=== PATIENT | female | born 1990 | race Caucasian/White ===

== ENCOUNTER 2017-01-25 13:58 | Emergency (ER) | payer OTHER ==
[~2017-01-25] VITALS: Ht 154.9 cm; Wt 80.3 kg
[2017-01-25 14:16] VITALS: BP 115/67
--- NOTE | 2017-01-25 15:09 | PHYS DOC ---
Past Medical History Past Medical History: Other Additional Past Medical Histor: Ear infection Past Surgical History: Tonsillectomy Alcohol Use: None Drug Use: None Adult General Chief Complaint Chief Complaint: EARACHE/EAR PAIN [facility] HPI Patient is a 26 year old female presents to the emergency department stating that she has been treated for an ear infection approximately 01/22 and was placed on amoxicillin. She states that now she has cough and congestion. She is here with her daughter who has the same symptoms. She denies taking anything jsxn-yaq-[id number] to help. Patient also states that she wants her right ankle evaluated and she twisted the ankle trying to get the children downstairs during the toenail watch few days ago Review of Systems Review of Systems Constitutional: Denies fever or chills [] Eyes: Denies change in visual acuity, redness, or eye pain [] HENT: nasal congestion denies sore throat [] Respiratory: cough denies shortness of breath [] Cardiovascular: No additional information not addressed in HPI [] GI: Denies abdominal pain, nausea, vomiting, bloody stools or diarrhea [] : Denies dysuria or hematuria [] Musculoskeletal: Denies back pain or joint pain [] Integument: Denies rash or skin lesions [] Neurologic: Denies headache, focal weakness or sensory changes [] Endocrine: Denies polyuria or polydipsia [] Allergies Allergies Allergies Coded Allergies Type Severity Reaction Last Updated Verified azithromycin Allergy Intermediate 01/25/17 Yes Physical Exam Physical Exam Constitutional: Well developed, well nourished, no acute distress, non-toxic appearance. [] HENT: Normocephalic, atraumatic, bilateral external ears normal, oropharynx moist, no oral exudates, nose normal. Bilateral tympanic membranes appear to be normal. Throat slightly red with postnasal drip. No exudate noted.Eyes: PERRLA, EOMI, conjunctiva normal, no discharge. [] Neck: Normal range of motion, no tenderness, supple, no stridor. [] Cardiovascular:Heart rate regular rhythm, no murmur [] Lungs & Thorax: Bilateral breath sounds clear to auscultation [] Skin: Warm, dry, no erythema, no rash. [] Extremities: No tenderness, no cyanosis, no clubbing, ROM intact, no edema. [] Neurologic: Alert and oriented X 3, normal motor function, normal sensory function, no focal deficits noted. [] Psychologic: Affect normal, judgement normal, mood normal. [] Current Patient Data Vital Signs Vital Signs Date Time Temp Pulse Resp B/P (MAP) Pulse Ox O2 Delivery O2 Flow Rate FiO2 01/25/17 14:16 99.0 100 20 95 Room Air 99.0 EKG EKG [] Radiology/Procedures Radiology/Procedures [][facility] [address] [place] [address] IMAGING REPORT Signed PATIENT: JUDITH WHITE ACCOUNT: [id number] : 1990 LOCATION: ER AGE: 26 SEX: F EXAM STATUS: REG ER ORD. PHYSICIAN: KATIE NAVARRETE APRN REASON: twisted ankle pain to the lateral side PROCEDURE: ANKLE RIGHT 3V Indication: Twisting injury 2 days ago with pain. Technique: 3 views of the right ankle are submitted for review. No comparison is available. Findings: There is no fracture or dislocation. There is soft tissue swelling laterally. Impression: Negative for fracture. DICTATED and SIGNED BY: SALOMÓN ENGLAND MD DATE: 01/25/17 1528 CC: CHASE LOPEZ DO; KATIE NAVARRETE APRN; NON,STAFF ~ Course & Med Decision Making Course & Med Decision Making Pertinent Labs and Imaging studies reviewed. (See chart for details) Recommended the patient to use Sudafed and Mucinex DM [id number]. Patient states that she gets these symptoms every month and she has tried this combination last month and it did not work. Patient was recommended over-the- counter medications. Recommended that she continue using amoxicillin. X-rays were negative for any bony abnormalities. Patient will be placed in an Bala wrap with an Air-Stirrup splint with recommendations to follow-up with orthopedic in the next 7-10 days. Recommendations to wear the splint for the next 7-10 days and the Bala wrap for the next 5-7 days. Ice packs on 20 minutes off 20 minutes several times a day elevation as much as possible. Patient will be discharged home in stable condition with signs and symptoms to return back to emergency department. All questions and concerns been answered at patient's bedside. [] Dragon Disclaimer Dragon Disclaimer This electronic medical record was generated, in whole or in part, using a voice recognition dictation system. Departure Departure Impression: Primary Impression: Upper respiratory infection Additional Impression: Right ankle sprain Disposition: 01 HOME, SELF-CARE Condition: STABLE Referrals: CHASE LOPEZ DO (PCP) TOPHER BACH MD Patient Instructions: Ankle Sprain, [id number], Upper Respiratory Infection, Adult, Dozf-[id number] Additional Instructions: Activity as tolerated. Wear the Bala wrap for the next 5-7 days in the Air-Stirrup splint for the next 7 -10 days. Ice packs on 20 minutes off 20 minutes several times a day. Ibuprofen for pain and discomfort. You may use Benadryl isya-odn-xehhxeo to help with sinus congestion. He may use hhlc-aiq-swkronj cough medication as well. Continue with the antibiotics were prescribed, amoxicillin. Follow-up to primary care physician in the next 7-10 days. Return back to emergency department sign symptoms of become worse. If he continued to have ankle pain and discomfort follow-up with orthopedic. Problem Qualifiers Primary Impression: Upper respiratory infection URI type: unspecified URI Qualified Codes: J06.9 - Acute upper respiratory infection, unspecified Additional Impression: Right ankle sprain Encounter type: initial encounter Involved ligament of ankle: unspecified ligament Qualified Codes: S93.401A - Sprain of unspecified ligament of right ankle, initial encounter KATIE NAVARRETE APRN Jan 25, 2017 15:09
--- NOTE | 2017-01-25 15:32 | RAD ---
Indication: Twisting injury 2 days ago with pain. Technique: 3 views of the right ankle are submitted for review. No comparison is available. Findings: There is no fracture or dislocation. There is soft tissue swelling laterally. Impression: Negative for fracture.
== END 2017-01-25 16:07 | disposition home or self-care (01) ==
LOC: ER 13:58
DX: S93.401A Sprain of unspecified ligament of right ankle, initial encounter (principal); J06.9 Acute upper respiratory infection, unspecified; Z90.89 Acquired absence of other organs; Z88.1 Allergy status to other antibiotic agents; X50.9XXA Other and unspecified overexertion or strenuous movements or postures, initial encounter; Y93.89 Activity, other specified; Y99.8 Other external cause status; Y92.89 Other specified places as the place of occurrence of the external cause
CPT/HCPCS: 73610; 99284

== ENCOUNTER → 2017-10-28 | Day surgery (SDC) | payer OTHER ==
[~2017-10-28] MED LIST: LIDOCAINE 2% PF Vial for OR 5 ML VIAL.; PROPOFOL 20 ML IV
[2017-10-28] MEDS: IV RINGERS,LACTATED 1000ML 1,000 ML IV (13:49)
[2017-10-28 15:20] LABS: NEG OBC UR NEG; POS OBC UR POS; U PREG PATIENT NEGATIVE (NEG)
== END | disposition home or self-care (01) ==
LOC: SURG 13:04
DX: K29.50 Unspecified chronic gastritis without bleeding (principal); K21.9 Gastro-esophageal reflux disease without esophagitis; Z88.1 Allergy status to other antibiotic agents; K58.9 Irritable bowel syndrome, unspecified; F41.9 Anxiety disorder, unspecified; F32.9 Major depressive disorder, single episode, unspecified; J45.909 Unspecified asthma, uncomplicated; Z83.3 Family history of diabetes mellitus; Z82.49 Family history of ischemic heart disease and other diseases of the circulatory system; Z82.3 Family history of stroke; Z72.89 Other problems related to lifestyle; Z79.899 Other long term (current) drug therapy; Z98.890 Other specified postprocedural states; Z86.718 Personal history of other venous thrombosis and embolism; E66.9 Obesity, unspecified
CPT/HCPCS: 43235; 81025; J2001; J2704

== ENCOUNTER → 2018-11-08 | Outpatient (CLI) | payer MEDICAID ==
[2017-10-28 14:52] VITALS: BP 96/61
[~2018-11-08] MED LIST changes: +ASCO500C PO; +CHOL10003 PO; -LIDOCAINE 2% PF Vial for OR 5 ML VIAL.; +PROGESTERONE TROCHE; -PROPOFOL 20 ML IV
--- NOTE | 2018-11-08 14:12 | KCIC ---
MRI Cervical Spine Without Contrast History: Bilateral upper extremity pain and numbness, cervical radiculopathy Technique: Multiplanar, multi sequential noncontrast MR imaging was performed of the cervical spine. Comparison: None Findings: There is mild motion. Cervical cord caliber is within normal limits without focal signal abnormality. Cervical vertebral body stature and AP alignment are maintained. There is straightening of the cervical spine. Intervertebral disc spaces are overall maintained, mild disc desiccation greatest at C5-6. There is no significant marrow edema. C2-C3: Neural foramina and spinal canal are adequate. C3-C4: Spinal canal and neural foramina are adequate. C4-C5: Spinal canal and neural foramina are adequate. C5-C6: There is negligible posterior bulge. Neural foramina and spinal canal are adequate. C6-C7: Neural foramina and spinal canal are adequate. There is negligible posterior bulge. C7-T1: Spinal canal and neural foramina are adequate. Impression: 1. There is no significant cervical spinal stenosis or neural foramina compromise. There are negligible posterior bulges at C5-6 and C6-7. Electronically signed by: Darrin Sanchez MD (11/08/2018 2:10 PM) [facility]
== END | disposition home or self-care (01) ==
LOC: KCIC MRI 12:52
PROVIDERS: ATTEND Orthopaedic Surgery
DX: M50.122 Cervical disc disorder at C5-C6 level with radiculopathy (principal)
CPT/HCPCS: 72141

== ENCOUNTER → 2018-11-17 | Day surgery (SDC) | payer MEDICAID ==
[~2018-11-17] MED LIST changes: +CETI10TA16 PO; +ERYT250T14 PO; +ESOM40CA PO; +IV RINGERS,LACTATED 1000ML 1,000 ML IV SCH; +LIDOCAINE 2% PF 5 ML VIAL. ONE; +MONT10TA49 PO; +PROPOFOL 40 ML IV ONE
[2018-11-17 14:12] VITALS: BP 106/57
--- NOTE | 2018-11-18 14:07 | PATHOLOGY ---
[facility] Accession Number: [id number] . 01 Material submitted: . PART A: ileum - TERMINAL ILEUM BIOPSY PART B: colon - RANDOM COLON BIOPSY . 01 Clinical history: . Right and left abdominal pain . 02 Diagnosis: A. Small intestine mucosa, terminal ileum biopsies: - No significant pathologic abnormalities. . B. Colonic mucosa, random colon biopsies: - No significant pathologic abnormalities. LB/11/18/2018 . 02 Comment: Sections of the terminal ileum biopsy reveal multiple segments of small intestine mucosa with focally hyperplastic mucosal associated lymphoid tissue (Peyer's patch). Where best oriented, the mucosal villi show no sprue-like changes or significant inflammatory changes. . Sections of the random colon biopsy reveal multiple segments of colonic mucosa containing multiple scattered mucosal associated lymphoid aggregates. There is no evidence of a chronic destructive colitis, lymphocytic colitis, or collagenous colitis. (JPM/db; 11/18/2018) . 02 Electronically signed: . Javy Resendez MD, Pathologist NPI- [id number] . 01 Gross description: . A. Received in formalin labeled "Tarik Singletary, terminal ileum BX," are 4 segments of to soft tissue measuring 1.4 x 0.9 x 0.2 cm in aggregate dimensions and ranging from 0.4 to 0.5 cm in maximum dimension. The specimen is submitted entirely in cassette A1. . B. Received in formalin labeled "Tarik Singletary, random colon BX," are 8 segments of to soft tissue measuring 2.0 x 1.6 x 0.3 cm in aggregate dimensions and ranging from 0.4 to 0.6 cm in maximum dimension. The specimen is submitted entirely in cassette B1. (TSD; 11/17/2018) TOB/TOB . 02 Pathologist provided ICD-10: R10.9 . 02 CPT . 398333, 168808 Specimen Comment: A courtesy copy of this report has been sent to Specimen Comment: [phone], . Specimen Comment: Report sent to / DR ORTEZ Performed at: 01 [facility] [address] [facility] [address], [place] [id number] MD Dean Castillo MD Phone: [phone] Performed at: 02 [facility] [address] [place], [place] [id number] MD Javy Resendez MD Phone: [phone]
== END ==
LOC: ENDOS 11:47
PROVIDERS: ATTEND Internal Medicine Gastroenterology
DX: K64.0 First degree hemorrhoids (principal); K63.89 Other specified diseases of intestine; F32.9 Major depressive disorder, single episode, unspecified; F41.9 Anxiety disorder, unspecified; K29.70 Gastritis, unspecified, without bleeding; J45.909 Unspecified asthma, uncomplicated; K21.9 Gastro-esophageal reflux disease without esophagitis; F15.90 Other stimulant use, unspecified, uncomplicated; Z72.89 Other problems related to lifestyle; Z98.890 Other specified postprocedural states
CPT/HCPCS: 45380; 81025; 88305; J2001; J2704

== ENCOUNTER 2021-02-11 18:06 | Emergency (ER) | payer MEDICAID ==
[~2021-02-11] VITALS: Ht 154.9 cm; Wt 88.6 kg
[~2021-02-11 18:06] MED LIST changes: -IV RINGERS,LACTATED 1000ML 1,000 ML IV SCH; -LIDOCAINE 2% PF 5 ML VIAL. ONE; -PROPOFOL 40 ML IV ONE
[2021-02-11 20:58] LABS: BILIRUBIN,URINE NEGATIVE (NEG); CLARITY,URINE CLEAR; COLOR,URINE YELLOW; NITRITE,URINE NEGATIVE (NEG); PROTEIN,URINE NEGATIVE (NEG-TRACE)
[2021-02-11 21:08] VITALS: BP 116/73
[2021-02-11 21:24] LABS: AMORPHOUS SEDIMENT,UR PRESENT /HPF; BACTERIA,URINE FEW /HPF (0-FEW)
[2021-02-11 21:25] LABS: RBC,URINE 0 /HPF (0-2)
--- NOTE | 2021-02-11 22:07 | PHYS DOC ---
Past Medical History Past Medical History: Other Additional Past Medical Histor: Ear infection Past Surgical History: Tonsillectomy Smoking Status: Former Smoker Alcohol Use: None Drug Use: None General Adult EDM: Chief Complaint: VAGINAL PROBLEM HPI: HPI: Patient is a 30 year old female who presents the ED today concerned her IUD strings are shorter than window placed 1 year ago. Patient states she can still feel them but they do not hang as low as they used to. Patient is also complaining of vaginal discharge for 4 days. Patient denies any concerns for STDs. She is concerned she could be having a reaction to the IUD hence the reason she has vaginal discharge. She states she is not sexually active and hence not Review of Systems: Review of Systems: Constitutional: Denies fever or chills. [] GI: Reports vaginal discharge, reports concern her IUD strings are shorter denies abdominal pain, nausea, vomiting, bloody stools or diarrhea. [] : Denies dysuria. [] Musculoskeletal: Denies back pain or joint pain. [] Integument: Denies rash. [] Neurologic: Denies headache, focal weakness or sensory changes. [] Psychiatric: Denies depression or anxiety. [] Heart Score: C/O Chest Pain: N/A Risk Factors: Risk Factors: DM, Current or recent (<one month) smoker, HTN, HLP, family history of CAD, obesity. Risk Scores: Score 0 - 3: 2.5% MACE over next 6 weeks - Discharge Home Score 4 - 6: 20.3% MACE over next 6 weeks - Admit for Clinical Observation Score 7 - 10: 72.7% MACE over next 6 weeks - Early Invasive Strategies Allergies: Allergies: Allergies Coded Allergies Type Severity Reaction Last Updated Verified azithromycin Allergy Intermediate 11/17/18 Yes Physical Exam: PE: Constitutional: Well developed, well nourished, no acute distress, non-toxic appearance. [] Abdomen: Bowel sounds normal, soft, no tenderness, no masses, no pulsatile masses. [] Pelvic exam External pelvic is normal, cervix is visualized, IUD strings seen in the cervical os with over 3 cm roughly of the string outside the cervical os. No CMT, no adnexal tenderness, small amount of clear white discharge noted in the vaginal vault Skin: Warm, dry, no erythema, no rash. [] Back: No tenderness, no CVA tenderness. [] Extremities: No tenderness, no cyanosis, no clubbing, ROM intact, no edema. [] Neurologic: Alert and oriented X 3, normal motor function, normal sensory function, no focal deficits noted. [] Psychologic: Affect normal, judgement normal, mood normal. [] Current Patient Data: Labs: Laboratory Tests Test 02/11/21 20:48 02/11/21 20:51 Urine Collection Type Void Urine Color Yellow Urine Clarity Clear Urine pH 7.0 (<5.0-8.0) Urine Specific [place] 1.010 (1.000-1.030) Urine Protein Negative mg/dL (NEG-TRACE) Urine Glucose (UA) Negative mg/dL (NEG) Urine Ketones (Stick) Negative mg/dL (NEG) Urine Blood Negative (NEG) Urine Nitrite Negative (NEG) Urine Bilirubin Negative (NEG) Urine Urobilinogen Dipstick 1.0 mg/dL (0.2 mg/dL) Urine Leukocyte Esterase Negative (NEG) Urine RBC 0 /HPF (0-2) Urine WBC 1-4 /HPF (0-4) Urine Squamous Epithelial Cells Few /LPF Urine Amorphous Sediment Present /HPF Urine Bacteria Few /HPF (0-FEW) POC Urine HCG, Qualitative Hcg negative (Negative) Microbiology 02/11/21 Wet Prep - Final, Complete Vital Signs: Vital Signs Date Time Temp Pulse Resp B/P (MAP) Pulse Ox O2 Delivery O2 Flow Rate FiO2 02/11/21 20:23 98.9 94 18 134/79 (97) 99 Room Air 98.9 EKG: EKG: [] Radiology/Procedures: Radiology/Procedures: [] Course & Med Decision Making: Course & Med Decision Making Pertinent Labs and Imaging studies reviewed. (See chart for details) Is a 30-year-old female patient presented to the ED today concerned her IUD strings are shorter than normal. Negative urine hCG, UA negative for infection, IUD strings noted during physical exam in the right position. Wet prep is negative. Reassured patient. Follow-up with OB [place] Disclaimer: Dragon Disclaimer: This electronic medical record was generated, in whole or in part, using a voice recognition dictation system. Departure Departure Impression: Primary Impression: Vaginal discharge Disposition: HOME / SELF CARE / HOMELESS Condition: STABLE Referrals: LUCAS ORTEZ (PCP) follow up next week Patient Instructions: Levonorgestrel intrauterine device (IUD) Additional Instructions: Your IUD strings were noted to be in the cervical opening. This is the normal location. Your urine has no infection. You do not have a yeast infection. We encourage you to follow-up with your [employer] or primary care doctor next week ALISSON BAUER APRN Feb 11, 2021 22:07
[2021-02-13 19:11] LABS: GC PROBE Negative (Negative)
== END 2021-02-11 22:24 | disposition home or self-care (01) ==
LOC: ER 18:06
DX: N89.8 Other specified noninflammatory disorders of vagina (principal); Z87.891 Personal history of nicotine dependence
CPT/HCPCS: 81001; 81025; 87491; 87591; 99284; Q0111; 99283